=== PATIENT | male | born 1960 | race Hispanic/Latino ===

== ENCOUNTER 2019-05-29 18:29 | Emergency (ER) | payer MEDICAID, OTHER ==
[~2019-05-29 18:29] MED LIST: ERGO400C PO; LISI1TAB32 PO; OMEG300C3 PO
[2019-05-29] MEDS ORDERED: METHYLPREDNISOLONE SOD SUCC 40MG/ML 1ML ONE (18:56)
[2019-05-29] MEDS ORDERED: FAMOTIDINE/PF 20 MG/2 ML VIAL IV ONE (18:56)
[2019-05-29] MEDS ORDERED: DiphenhydrAMINE HCL 50 MG/ML VIAL ONE (18:56)
[2019-05-29 18:59] LABS: BASOPHILS % (AUTO) 0.1 % (0.0-5.0); EOSINOPHILS % (AUTO) 5.7 % (0.0-8.0); HEMATOCRIT 42.4 % (42-54); LYMPHOCYTES % (AUTO) 13.7 % (21.0-51.0); MEAN CORPUSCULAR HEMOGLOBIN 30.9 pg (27.0-33.0); MEAN CORPUSCULAR HGB CONC 33.9 g/dL (32.0-36.0); MEAN CORPUSCULAR VOLUME 91.3 fL (79-99); NEUTROPHILS % (AUTO) 72.5 % (40.0-77.0); PLATELET COUNT (AUTO) 251 K/uL (130-400); RED BLOOD CELL COUNT(AUTO) 4.65 MIL/uL (4.50-6.20); RED CELL DISTRIBUTION WIDTH 13.2 % (11.0-15.5); WHITE BLOOD COUNT (AUTO) 8.2 K/uL (4.8-10.8)
[2019-05-29 19:10] LABS: CREATININE 2.5 mg/dL (0.5-1.5); POTASSIUM 4.3 mmol/L (3.5-5.1)
[2019-05-29 19:14] LABS: ALBUMIN 3.5 g/dL (3.5-5.0); BILIRUBIN,TOTAL 0.5 mg/dL (0.2-1.0); TOTAL PROTEIN, SERUM 6.5 g/dL (6.0-8.3)
[2019-05-29] MEDS ORDERED: SODIUM CHLORIDE 0.9% 1000ML 1,000 ML IV ONE (22:13)
== END 2019-05-30 00:04 | disposition home or self-care (01) ==
LOC: EDH 18:29
DX: I95.9 Hypotension, unspecified (principal); R21 Rash and other nonspecific skin eruption; E78.00 Pure hypercholesterolemia, unspecified
CPT/HCPCS: 36415; 80053; 85025; 96374; 96375; 99284; J1200; J2920; J3490; J7030

== ENCOUNTER 2021-04-02 23:36 | Emergency (ER) | payer OTHER, SELFPAY ==
[~2021-04-02] VITALS: Ht 167.6 cm; Wt 96.2 kg
[2021-04-02 23:58] VITALS: BP 175/77
[2021-04-03] MEDS ORDERED: ORPHENADRINE CITRATE 30 MG/ML ML IV ONE (00:30)
[2021-04-03] MEDS ORDERED: KETOROLAC 15MG/ML VIAL (15MG/ML) IV ONE (00:30)
[2021-04-03] MEDS ORDERED: MORPHINE 5 MG/ML VIAL (5MG OR GREATER DOSE) IV ONE (00:30)
[2021-04-03] MEDS ORDERED: ONDANSETRON 4MG INJ IVP ONE (00:30)
[2021-04-03] MEDS ORDERED: ORPHENADRINE CITRATE 30 MG/ML ML ONE (02:08)
[2021-04-03] MEDS ORDERED: KETOROLAC 15MG/ML VIAL (15MG/ML) ONE (02:08)
[2021-04-03] MEDS ORDERED: ONDANSETRON 4MG INJ ONE (02:08)
[2021-04-03] MEDS ORDERED: MORPHINE 5 MG/ML VIAL (5MG OR GREATER DOSE) ONE (02:09)
[2021-04-03] MEDS ORDERED: OXYCODONE/ACETAMIN 5/325MG TAB ONE ×2 (03:25→03:26)
[2021-04-03 03:28] LABS: APPEARANCE,URINE Clear (CLEAR); BILIRUBIN,URINE Negative (NEGATIVE); COLOR,URINE Yellow (YELLOW); GLUCOSE, URINE (UA) Negative (NEGATIVE); KETONES,URINE Negative (NEGATIVE); LEUKOCYTE ESTERASE ,URINE Negative (NEGATIVE); NITRATE,URINE Negative (NEGATIVE); OCCULT BLOOD,URINE Negative (NEGATIVE); PH,URINE 5.5 (5.0-8.0); PROTEIN,URINE Negative (NEGATIVE)
[2021-04-03] MEDS ORDERED: OXYCODONE/ACETAMIN 5/325MG TAB PO ONE (03:30)
[2021-04-03] MEDS ORDERED: PROM25TA7 PO (03:31)
[2021-04-03 04:40] VITALS: BP 110/57
== END 2021-04-03 05:39 | disposition home or self-care (01) ==
LOC: EDH 23:36
DX: S52.202A Unspecified fracture of shaft of left ulna, initial encounter for closed fracture (principal); S16.1XXA Strain of muscle, fascia and tendon at neck level, initial encounter; S00.412A Abrasion of left ear, initial encounter; S30.810A Abrasion of lower back and pelvis, initial encounter; I10 Essential (primary) hypertension; E78.00 Pure hypercholesterolemia, unspecified; Z79.1 Long term (current) use of non-steroidal anti-inflammatories (NSAID); Z79.899 Other long term (current) drug therapy; Y08.89XA Assault by other specified means, initial encounter; Y93.89 Activity, other specified; Y92.89 Other specified places as the place of occurrence of the external cause; Y99.8 Other external cause status
CPT/HCPCS: 72040; 72100; 72170; 73090; 81003; 96374; 96375; 99284; J1885; J2270; J2360; J2405

== ENCOUNTER 2022-09-23 16:41 | Emergency (ER) | payer OTHER, BC ==
[~2022-09-23] VITALS: Ht 167.6 cm; Wt 100.7 kg
[~2022-09-23 16:41] MED LIST changes: -LISI1TAB32 PO; +LISI1TAB49 PO; +PROM25TA7 PO
[2022-09-23] MEDS ORDERED: KETOROLAC 30MG VIAL (30MG/ML) IM ONE (18:00)
[2022-09-23] MEDS ORDERED: NAPR375T6 PO (18:54)
[2022-09-23 19:08] VITALS: BP 144/62
== END 2022-09-23 19:10 | disposition home or self-care (01) ==
LOC: EDH 16:41
DX: S39.012A Strain of muscle, fascia and tendon of lower back, initial encounter (principal); S16.1XXA Strain of muscle, fascia and tendon at neck level, initial encounter; E78.00 Pure hypercholesterolemia, unspecified; I10 Essential (primary) hypertension; V49.88XA Car occupant (driver) (passenger) injured in other specified transport accidents, initial encounter; Y93.89 Activity, other specified; Y92.89 Other specified places as the place of occurrence of the external cause; Y99.8 Other external cause status
CPT/HCPCS: 99284; 72040; 72100; 96372; J1885